=== PATIENT | female | born 1960 | race Two or more races ===

== ENCOUNTER 2024-07-02 10:50 | Inpatient (IN) | payer OTHER ==
[~2024-07-02] VITALS: Ht 152.4 cm; Wt 60.0 kg
--- NOTE | 2024-07-02 11:00 | ED.PDOC ---
HPI (NEURO) HPI Comments 63y F who presents to the ED for chief complaint of dizziness. - pt states she has been having dizziness with a specific headache for the past 2 days with noted headache to the front and back of her head - pt states she has history of vertigo and is otherwise complaint with her meclizine and states she took her medication earlier this AM prior to ED arrival - pt in the ED, otherwise is alert and oriented x 4 and able to answer all questions and no noted changes in vision, gait or speech are noted. - pt in the ED, denies nausea, vomiting, fever, cough,chills, dysuria, chest pain or shortness of breath - pt otherwise denies any other symptoms at this time Past medical history: DM, HTN, and CVA past surgical history: Medications: meclizine, metformin, Allergies: nkda Social history: denies ETOH, denies tobacco use, denies drug use Patrcik: GRAYSON: Lynette Historian. Patient states she had this many years ago and was seen by a specialist and was diagnosed with vertigo. She said her symptoms recurred again at least 2-3 weeks ago and she has been taking meclizine most recently at 9:00 a.m. prior to arrival. Rotation of the head in a rapid movement reproduces the symptoms of vertigo and dizziness. REVIEW OF SYSTEMS: CONSTITUTIONAL: Denies acute: fever, diaphoresis, chills, generalized weakness. HEAD: Denies acute: , photophobia Eyes: Denies acute: Double vision, vision loss, eye pain, eye discharge. EARS: Denies acute: tinnitus, hearing loss, ear discharge, ear pain, THROAT: Denies acute: sore throat, swelling, difficulty swallowing , pain with swa llowing, change in voice. NECK: Denies acute: neck pain, neck swelling, stiff neck. HEART: Denies acute : chest pain, palpitations, LUNGS: Denies acute: SOB, wheezing, cough, hemoptysis ABDOMEN: Denies acute: abdominal pain, Nausea, Vomiting, diarrhea, melena , hematemesis, hematochezia SKIN: Denies acute: rash, redness, lesions, itchiness. EXTREMITIES: Denies acute: calf pain, numbness, tingling, weakness, denies pain in extremity. Denies acute: Low back pain. Neuro: Denies acute: focal neurological deficit, motor or sensory focal neurological deficit, tremors, seizure like activity, confusion, , change in mental status, loss of bowel or bladder function, cauda equina like symptoms. : Denies acute: dysuria, hematuria, flank pain, increase in urinary frequency. PSYCH: Denies acute: hallucination, suicidal ideation, homicidal ideation. FEMALE: Denies acute: abnormal vaginal bleeding, foul odor, unusual discharge. PHYSICAL EXAM: General: ----mild----acute distress, awake and alert. Head: normocephalic, atraumatic. Neck: supple, trachea is midline, no swelling. Throat: Normal phonation. Eyes:, no erythema, no purulent discharge, no proptosis, no icterus. Heart: regular rate, regular rhythm, no significant murmur appreciated. Lungs: no apparent respiratory distress, Able to speak in full sentences. No wheezing, no rhonchi, no crackles. No stridors Clear to auscultation bilaterally. Abdomen: non tender to palpation, non distended, soft, no guarding, no rebound, + bowel sounds. Neuro: Awake, Alert, oriented to name, self, situation, follows commands GCS=15. Speech is normal. Skin: no petechia, no purpura, no cyanosis, non-pale, not jaundice. Lower extremities: --no - Pitting edema no deformity, no focal swelling, no calf TTP. Makes eye contact. moves all four extremities. Face: no apparent facial droop. Ambulating in the ED independently. PERRLA, EOM-I CN 2-12 are grossly intact, No nystagmus. No nuchal rigidity, Kernig's sign, Brudzinski's sign, no meningeal signs. ED COURSE: Chief Complaint: Dizziness Time Seen by MD: 11:07 Reviewed Notes: Nurses Notes, Medications, Allergies Information Source: Patient, Relative Mode of Arrival: Ambulatory Brought in by: family member Family History Family History: Reviewed,noncontributory to illness Social History Smoker: Non-Smoker Alcohol: Denies ETOH Use Drugs: Denies Drug Use Was a procedure done? Was a procedure done?: No Differential Diagnosis (SZ) Seizure: N/A General Weakness: Anemia, CVA, Dehydration, Dysrhythmia, Electrolyte imbalance, Encephalopathy, Guillain-Windthorst, Hypoglycemia, Hypotension, Hypovolemia, Labyrinthitis, Meniere's disease, Myasthenia gravis, Myocardial infarction, Pulmonary embolus, Repiratory failure, Vertigo: peripheral, Vestibular neuronitis X-Ray, Labs, Meds, VS Vital Signs Date Time Temp Pulse Resp B/P (MAP) Pulse Ox O2 Delivery O2 Flow Rate FiO2 07/02/24 13:07 79 64/38 07/02/24 13:04 71 96/59 07/02/24 13:00 98.2 71 13 96/59 (71) 97 98.2 07/02/24 11:45 206/103 07/02/24 11:25 79 14 98 Room Air* 0 21 07/02/24 11:25 98.0 79 14 206/103 (137) 98 98.0 07/02/24 11:01 74 07/02/24 10:53 98.2 80 16 182/98 (126) 99 98.2 Lab Test 07/02/24 13:05 07/02/24 11:40 07/02/24 11:11 Range/Units Troponin I High Sensitivity < 3 L < 3 L </=34 ng/L Thyroid Stimulating Hormone (TSH) Pending Urine Color Straw Yellow Urine Clarity Clear Clear Urine pH 7.0 5.0-9.0 Urine Specific [place] 1.006 1.001-1.035 Urine Protein Negative Negative Urine Ketones Negative Negative Urine Blood Negative Negative /uL Urine Nitrite Negative Negative Urine Bilirubin Negative Negative Urine Urobilinogen Normal Negative mg/dL Urine Leukocyte Esterase Negative Negative /uL Urine RBC <1 0 - 4 /hpf Urine Microscopic WBC 2 0-5 /HPF Urine Squamous Epithelial Cells None seen <5 /hpf Urine Bacteria None seen None Seen /hpf Urine Glucose Normal Normal mg/dL White Blood Count 5.7 4.4-10.8 10^3/uL Red Blood Count 4.58 4.0-5.20 10^6/uL Hemoglobin 14.0 12.2-16.2 g/dL Hematocrit 41.6 36.0-46.0 % Mean Corpuscular Volume 90.9 80.0-100.0 fL Mean Corpuscular Hemoglobin 30.6 28.0-32.0 pg Mean Corpuscular Hemoglobin Concent 33.6 32.0-36.0 g/dL Red Cell Distribution Width 12.5 11.8-14.3 % Platelet Count 204 140-450 10^3/uL Mean Platelet Volume 7.9 6.9-10.8 fL Neutrophils (%) (Auto) 43.5 37.0-80.0 % Lymphocytes (%) (Auto) 47.3 10.0-50.0 % Monocytes (%) (Auto) 6.7 0.0-12.0 % Eosinophils (%) (Auto) 1.5 0.0-7.0 % Basophils (%) (Auto) 1.0 0.0-2.0 % Neutrophils # (Auto) 2.5 1.6-8.6 10 ^3/uL Lymphocytes # (Auto) 2.7 0.4-5.4 10 ^3/uL Monocytes # (Auto) 0.4 0-1.3 10 ^3/uL Eosinophils # (Auto) 0.1 0-0.8 10 ^3/uL Basophils # (Auto) 0.1 0-0.2 10 ^3/uL Nucleated Red Blood Cells 0.1 % Sodium Level 139 136-145 mmol/L Potassium Level 3.9 3.5-5.1 mmol/L Chloride Level 105 98-107 mmol/L Carbon Dioxide Level 26 20-31 mmol/L Anion Gap 8 5-15 Blood Urea Nitrogen 8 L 9-23 mg/dL Creatinine 0.61 0.550-1.02 mg/dL Glomerular Filtration Rate Calc 101 >90 mL/min BUN/Creatinine Ratio 13.1 10.0-20.0 Serum Glucose 124 H 74-106 mg/dL Hemoglobin A1c Pending Lactic Acid Level 1.8 0.4-2.0 mmol/L Calcium Level 9.7 8.7-10.4 mg/dL Magnesium Level 2.1 1.6-2.6 mg/dL Total Bilirubin 0.6 0.2-1.0 mg/dL Aspartate Amino Transferase (AST) 27 13-40 U/L Alanine Aminotransferase (ALT) 38 7-40 U/L Alkaline Phosphatase 77 46-116 U/L Total Protein 7.6 5.7-8.2 g/dL Albumin 4.8 3.2-4.8 g/dL Triglycerides Level Pending Cholesterol Level Pending LDL Cholesterol Pending HDL Cholesterol Pending Current Medications Medications (Trade) Dose Ordered Sig/Angela Route Start Time Stop Time Status Last Admin Diazepam (Valium Tablet) 5 mg ONCE ONCE PO 07/02/24 11:00 07/02/24 11:01 DC 07/02/24 11:44 Hydralazine HCl (Apresoline Injection) 5 mg ONCE ONCE IV 07/02/24 11:45 07/02/24 11:46 DC 07/02/24 11:45 Sodium Chloride 1,000 ml @ 1,000 mls/hr Q1H ONCE IV 07/02/24 13:15 07/02/24 14:14 DC 07/02/24 13:08 [place] [id number] Ph: [phone] DIAGNOSTIC IMAGING Diagnostic Imaging Report : [id number] Signed PATIENT: DIA ORTIZCT: [id number] UNIT: [id number] : 1960 LOC: ER ROOM / BED: / AGE / SEX: 63 / F ADM STATUS: REG ER SERVICE 1058 ORDERING PHYSICIAN: GRACIE CLARK DO PROCEDURE(s): HWOCT - HEAD WITHOUT CONTRAST REASON: dizzy/park ORDER NUMBER(s): [id number], ACCESSION NUMBER(s): [id number] EXAM: CT HEAD WITHOUT CONTRAST INDICATION: dizzy/park TECHNIQUE: CT of the head without intravenous contrast. Radiation Dose : 1. Head: CT Dose: CTDI volume is 52 mGy. Dose-length product is 829 mGy*cm The dose indicators for CT are the volume Computed Tomography (CT) Dose Index (CTDIvol) and the Dose Length Product (DLP), and are measured in units of mGy and mGy-cm, respectively. These indicators are not patient dose, but values generated from the CT scanner acquisition factors. The report includes radiation exposure data for exposures received during this examination. COMPARISON: None FINDINGS: There is no evidence of acute intracranial hemorrhage, extra-axial collection, mass effect, midline shift, herniation or hydrocephalus. The ventricles, sulci and cisterns are age appropriate. The slaughter-white differentiation is intact. Patchy periventricular and subcortical white matter hypoattenuation is nonspecific but may be related to small vessel ischemic disease. The visualized paranasal sinuses and mastoid air cells are clear. The surrounding soft tissues and osseous structures are unremarkable. IMPRESSION: No acute intracranial abnormality. Radiation optimization: All CT scans at this facility use at least one of these dose optimization techniques: automated exposure control mA and/or kV adjustment per patient size (includes targeted exams where dose is matched to clinical indication) or iterative reconstruction. ATED BY: ABEBE ESTRADA MD DICTATED DATE/TIME: 07/02/241127 SIGNED BY: ABEBE ESTRADA MD SIGNED DATE/TIME: 07/02/241127 CC: Time of 1ST Reevaluation: 14:18 Reevaluation 1ST: Improved Patient Education/Counseling: Diagnosis, Treatment Family Education/Counseling: Other Comments Patient presented with the above HPI.--dizziness---workup was initiated. patient was found with the above mentioned diagnosis. the following medications were ordered: please refer to order lists of meds and tests obtained by myself Dr. Clark. Patient ED course and VS have been stabilized. Patient has been reassessed in the ED and remained in a stable condition. Pertinent incidental findings were discussed with the patient and/or family. Patient/family voices understanding and is agreeable with plan. Patient has been observed in the ED adequate length of time to insure improvement/stability. Escalation of care considered: Consideration of escalation to observation or admission Patient had multiple episodes of blood pressure fluctuation very hypertensive in the 200s systolic and then as low as 60 systolic. Patient was ADMITTED to the medicine team for further evaluation and treatment of their presentation. All the reports of any imaging studies that were ordered by myself were reviewed by myself. Departure 1 Departure Time of Disposition: 13:22 Impression: Primary Impression: Vertigo Additional Impressions: Hypertensive urgency Hypotensive episode Disposition: ADMITTED INPATIENT Admit to: Tele Condition: Guarded Discharged With: Self Critical Care Note Critical Care Time?: Yes (35 min-critical care time only) I personally scribed for GRACIE CLARK DO ([email or web address]) on 07/02/24 at 11:00. Electronically submitted by Maida Garcia ([facility]). I personally scribed for GRACIE CLARK DO ([email or web address]) on 07/02/24 at 11:08. Electronically submitted by Maida Garcia ([facility]). I personally scribed for GRACIE CLARK DO ([facility]) on 07/02/24 at 11:42. Electronically submitted by Maida Garcia ([facility]). GRACIE CLARK DO Jul 02, 2024 11:00
[2024-07-02 11:25] VITALS: PULSE 79; RESP 14; O2SAT 98
[2024-07-02 11:28] LABS: Basophils # (auto) 0.1 10 ^3/uL (0-0.2); Eosinophils # (auto) 0.1 10 ^3/uL (0-0.8); Eosinophils % (auto) 1.5 % (0.0-7.0); Hematocrit 41.6 % (36.0-46.0); Lymphocytes # (auto) 2.7 10 ^3/uL (0.4-5.4); Lymphocytes % (auto) 47.3 % (10.0-50.0); Mean Corpuscular Hemoglobin 30.6 pg (28.0-32.0); Mean Corpuscular Hgb Conc. 33.6 g/dL (32.0-36.0); Mean Corpuscular Volume 90.9 fL (80.0-100.0); Monocytes # (auto) 0.4 10 ^3/uL (0-1.3); Monocytes % (auto) 6.7 % (0.0-12.0); Neutrophils # (auto) 2.5 10 ^3/uL (1.6-8.6); Neutrophils % (auto) 43.5 % (37.0-80.0); Nucleated Red Blood Cells % 0.1 %; Platelet Count (auto) 204 10^3/uL (140-450); Red Blood Cells 4.58 10^6/uL (4.0-5.20); Red Cell Distribution Width 12.5 % (11.8-14.3); White Blood Cell 5.7 10^3/uL (4.4-10.8)
--- NOTE | 2024-07-02 11:30 | DVH ---
EXAM: CT HEAD WITHOUT CONTRAST INDICATION: dizzy/park TECHNIQUE: CT of the head without intravenous contrast. Radiation Dose : 1. Head: CT Dose: CTDI volume is 52 mGy. Dose-length product is 829 mGy*cm The dose indicators for CT are the volume Computed Tomography (CT) Dose Index (CTDIvol) and the Dose Length Product (DLP), and are measured in units of mGy and mGy-cm, respectively. These indicators are not patient dose, but values generated from the CT scanner acquisition factors. The report includes radiation exposure data for exposures received during this examination. COMPARISON: None FINDINGS: There is no evidence of acute intracranial hemorrhage, extra-axial collection, mass effect, midline s hift, herniation or hydrocephalus. The ventricles, sulci and cisterns are age appropriate. The slaughter-white differentiation is intact. Patchy periventricular and subcortical white matter hypoattenuation is nonspecific but may be related to small vessel ischemic disease. The visualized paranasal sinuses and mastoid air cells are clear. The surrounding soft tissues and osseous structures are unremarkable. IMPRESSION: No acute intracranial abnormality. Radiation optimization: All CT scans at this facility use at least one of these dose optimization suzanne hniques: automated exposure control mA and/or kV adjustment per patient size (includes targeted exam s where dose is matched to clinical indication) or iterative reconstruction.
[2024-07-02] MEDS: diazePAM 5 MG TAB PO ONE (11:44)
[2024-07-02] MEDS: hydrALAZINE HCL 20 MG/ML VL IV ONE (11:45)
[2024-07-02 11:54] LABS: Alanine Aminotransferase 38 U/L (7-40); Alkaline Phosphatase 77 U/L (46-116); Anion Gap 8 (5-15); Aspartate Aminotransferase 27 U/L (13-40); BUN/Creatinine Ratio 13.1 (10.0-20.0); Bilirubin, Total 0.6 mg/dL (0.2-1.0); Calcium 9.7 mg/dL (8.7-10.4); Carbon Dioxide 26 mmol/L (20-31); Chloride 105 mmol/L (98-107); Magnesium 2.1 mg/dL (1.6-2.6); Potassium 3.9 mmol/L (3.5-5.1); Sodium 139 mmol/L (136-145); Total Protein 7.6 g/dL (5.7-8.2)
[2024-07-02 11:56] LABS: Albumin 4.8 g/dL (3.2-4.8); Blood Urea Nitrogen 8 mg/dL (9-23); Glucose 124 mg/dL (74-106)
[2024-07-02] MEDS: SODIUM CHLORIDE 0.9% 1,000 ML IV ONE (13:08)
[2024-07-02 13:49] LABS: Urine Bacteria None Seen /hpf (None Seen)
[2024-07-02] MEDS ORDERED: HYDROcodone-ACET 5/325MG TAB PO PRN (14:15)
[2024-07-02] MEDS ORDERED: MORPHINE SULFATE INJ 2 MG/ml SYRG IV PRN (14:15)
[2024-07-02] MEDS ORDERED: ACETAMINOPHEN 325 MG TAB PO PRN (14:15)
[2024-07-02] MEDS ORDERED: ONDANSETRON HCL 4 MG/2 ML VIAL IV PRN (14:15)
[2024-07-02 14:24] LABS: Urine Blood Negative /uL (Negative); Urine Clarity Clear (Clear); Urine Protein, UAD Negative (Negative); Urine Specific Gravity 1.006 (1.001-1.035); Urine Squamous Epithelial Cell None Seen /hpf (<5); Urine Urobilinogen Normal (Negative); Urine WBC 2 /HPF (0-5)
[2024-07-02 14:27] LABS: Urine Color Straw (Yellow)
[2024-07-02] MEDS ORDERED: DEXTROSE (50%) 50ML SYRG IV PRN (14:30)
--- NOTE | 2024-07-02 14:50 | DVHHP2 ---
History of Present Illness Reason for Visit: Dizziness and headache History of Present Illness Lauren Hedrick is a 63-year-old female with past medical history of hypertension, diabetes type 2, CVA with left-sided deficits, vertigo, and C- section who presents to the ED with dizziness and headache x2 weeks. Per patient she had gone to over to see a doctor and was diagnosed with an ear infection in the right and was given amoxicillin along with ibuprofen. She is currently reporting ear pain in the right and itchiness in the left. Patient also states that 1 month ago she had the flu. She denies any recent sick contacts, recent trauma or injury, recent ingestion of spoiled food, recent travels, fever, chills, lightheadedness, weakness, chest pain, shortness of breath, abdominal pain, nausea, vomiting, or diarrhea. Patient reported that she had a stroke in February of 2023 and had physical therapy for about 5 months. Cardiovascular: HTN GLASS CARRIER: Other (CVA with left-sided weakness and vertigo) Endocrine: Diabetes Past Surgical History: Family History: DM, Other (Mom with diabetes and heart disease and father with CABG) Smoke: No ALCOHOL: none Drugs: None Lives: with Family Domestic Violence: Neg Review of Systems Constitutional: Yes: Other (Headache and dizziness) ENT: Ear pain, Other (Left ear itchiness and right ear pain) Allergies: Coded Allergies: NO KNOWN ALLERGIES (Unverified , 07/02/24) Exam Vital Signs Vital Signs Date Time Temp Pulse Resp B/P (MAP) Pulse Ox O2 Delivery O2 Flow Rate FiO2 07/02/24 13:07 79 64/38 07/02/24 11:25 14 98 Room Air* 0 21 07/02/24 11:25 98.0 98.0 General Appearance: Alert, Oriented X3, Cooperative, No acute distress HEENT: Atraumatic, PERRLA, EOMI, Mucous membr. moist/pink Respiratory: Normal air movement Cardiovascular: Normal S1, Normal S2, No murmurs Abdominal: Soft Extremities: No cyanosis, No edema, Normal pulses Skin: No significant lesion Neuro: Normal speech, Normal tone, Sensation intact Psych/Mental Status: Mental status NL, Mood NL Labs/Xrays Labs Test 07/02/24 13:05 07/02/24 11:40 07/02/24 11:11 Range/Units Troponin I High Sensitivity < 3 L </=34 ng/L Urine Color Straw Yellow Urine Clarity Clear Clear Urine pH 7.0 5.0-9.0 Urine Specific [place] 1.006 1.001-1.035 Urine Protein Negative Negative Urine Ketones Negative Negative Urine Blood Negative Negative /uL Urine Nitrite Negative Negative Urine Bilirubin Negative Negative Urine Urobilinogen Normal Negative mg/dL Urine Leukocyte Esterase Negative Negative /uL Urine RBC <1 0 - 4 /hpf Urine Microscopic WBC 2 0-5 /HPF Urine Squamous Epithelial Cells None seen <5 /hpf Urine Bacteria None seen None Seen /hpf Urine Glucose Normal Normal mg/dL White Blood Count 5.7 4.4-10.8 10^3/uL Red Blood Count 4.58 4.0-5.20 10^6/uL Hemoglobin 14.0 12.2-16.2 g/dL Hematocrit 41.6 36.0-46.0 % Mean Corpuscular Volume 90.9 80.0-100.0 fL Mean Corpuscular Hemoglobin 30.6 28.0-32.0 pg Mean Corpuscular Hemoglobin Concent 33.6 32.0-36.0 g/dL Red Cell Distribution Width 12.5 11.8-14.3 % Platelet Count 204 140-450 10^3/uL Mean Platelet Volume 7.9 6.9-10.8 fL Neutrophils (%) (Auto) 43.5 37.0-80.0 % Lymphocytes (%) (Auto) 47.3 10.0-50.0 % Monocytes (%) (Auto) 6.7 0.0-12.0 % Eosinophils (%) (Auto) 1.5 0.0-7.0 % Basophils (%) (Auto) 1.0 0.0-2.0 % Neutrophils # (Auto) 2.5 1.6-8.6 10 ^3/uL Lymphocytes # (Auto) 2.7 0.4-5.4 10 ^3/uL Monocytes # (Auto) 0.4 0-1.3 10 ^3/uL Eosinophils # (Auto) 0.1 0-0.8 10 ^3/uL Basophils # (Auto) 0.1 0-0.2 10 ^3/uL Nucleated Red Blood Cells 0.1 % Sodium Level 139 136-145 mmol/L Potassium Level 3.9 3.5-5.1 mmol/L Chloride Level 105 98-107 mmol/L Carbon Dioxide Level 26 20-31 mmol/L Anion Gap 8 5-15 Blood Urea Nitrogen 8 L 9-23 mg/dL Creatinine 0.61 0.550-1.02 mg/dL Glomerular Filtration Rate Calc 101 >90 mL/min BUN/Creatinine Ratio 13.1 10.0-20.0 Serum Glucose 124 H 74-106 mg/dL Lactic Acid Level 1.8 0.4-2.0 mmol/L Calcium Level 9.7 8.7-10.4 mg/dL Magnesium Level 2.1 1.6-2.6 mg/dL Total Bilirubin 0.6 0.2-1.0 mg/dL Aspartate Amino Transferase (AST) 27 13-40 U/L Alanine Aminotransferase (ALT) 38 7-40 U/L Alkaline Phosphatase 77 46-116 U/L Total Protein 7.6 5.7-8.2 g/dL Albumin 4.8 3.2-4.8 g/dL EXAM: CT HEAD WITHOUT CONTRAST INDICATION: dizzy/park TECHNIQUE: CT of the head without intravenous contrast. Radiation Dose : 1. Head: CT Dose: CTDI volume is 52 mGy. Dose-length product is 829 mGy*cm The dose indicators for CT are the volume Computed Tomography (CT) Dose Index (CTDIvol) and the Dose Length Product (DLP), and are measured in units of mGy and mGy-cm, respectively. These indicators are not patient dose, but values generated from the CT scanner acquisition factors. The report includes radiation exposure data for exposures received during this examination. COMPARISON: None FINDINGS: There is no evidence of acute intracranial hemorrhage, extra-axial collection, mass effect, midline shift, herniation or hydrocephalus. The ventricles, sulci and cisterns are age appropriate. The slaughter-white differentiation is intact. Patchy periventricular and subcortical white matter hypoattenuation is nonspecific but may be related to small vessel ischemic disease. The visualized paranasal sinuses and mastoid air cells are clear. The surrounding soft tissues and osseous structures are unremarkable. IMPRESSION: No acute intracranial abnormality. Assessment/Plan Assessment/Plan Assessment Hypertensive urgency Vertigo Intractable headache History of hypertension History of diabetes type 2 History of CVA with left-sided hemiparesis History of Plan Admit to [facility] IV fluids given ED Antihypertensives given ED Troponin negative x2 CT head noted EKG UA Mag level Lactic Orthostatics Flu test COVID test IV antibiotics-azithromycin TSH Hemoglobin A1c ISS and Accu-Cheks acth cortisol Aldosterone level Patient reports that she does not take any home medications DVT prophylaxis-Lovenox PUD prophylaxis-not indicated no history of GERD or GI bleed Discussed plan of care with patient and nurse Plan discussed with: Patient Date of Service: Jul 02, 2024 Billing Provider: ELSI NUNEZ Common Visit Codes: [id number] INP/OBS CARE (HIGH) ELSI NUNEZ Jul 02, 2024 14:50
[2024-07-02] MEDS: AZITHROMYCIN 500MG/ 250ML 250 ML IV SCH (15:23)
[2024-07-02 15:25] LABS: HDL Cholesterol 51 mg/dL (40-59)
[2024-07-02 15:31] LABS: Cholesterol 278 mg/dL (< 200); LDL Cholesterol 181 mg/dL (< 100); Triglycerides 354 mg/dL (< 150)
[2024-07-02 15:50] LABS: COVID19 ANTIGEN SOFIA FIA NEGATIVE (NEGATIVE); Rapid Influenza A Negative (Negative); Rapid Influenza B Negative (Negative)
[2024-07-02] MEDS: InsuLIN REG 1unit/0.01ml Soln (100units/ml) SC SCH (17:00)
[2024-07-02] MEDS: ACCU-CHEK COMFORT CURVE STRIP VI SCH (17:00)
[2024-07-02 19:20] VITALS: PULSE 88; RESP 14; O2SAT 96
[2024-07-02 20:32] VITALS: BP 129/84; PULSE 96; RESP 20; TEMP 98; O2SAT 98
[2024-07-02 21:35] VITALS: BP 117/67; PULSE 99; TEMP 98.4; O2SAT 99
[2024-07-03] VITALS (8 sets, daily range): BP systolic 111–140; BP diastolic 55–92; PULSE 75–106; RESP 15–18; TEMP 98–98.7; O2SAT 96–98
[2024-07-03 06:14] LABS: Basophils # (auto) 0.1 10 ^3/uL (0-0.2); Basophils % (auto) 0.7 % (0.0-2.0); Eosinophils # (auto) 0.1 10 ^3/uL (0-0.8); Eosinophils % (auto) 1.4 % (0.0-7.0); Hematocrit 38.9 % (36.0-46.0); Hemoglobin 13.3 g/dL (12.2-16.2); Lymphocytes # (auto) 3.7 10 ^3/uL (0.4-5.4); Lymphocytes % (auto) 51.9 % (10.0-50.0); Mean Corpuscular Hemoglobin 30.6 pg (28.0-32.0); Mean Corpuscular Hgb Conc. 34.2 g/dL (32.0-36.0); Mean Corpuscular Volume 89.7 fL (80.0-100.0); Monocytes # (auto) 0.5 10 ^3/uL (0-1.3); Monocytes % (auto) 6.9 % (0.0-12.0); Neutrophils # (auto) 2.8 10 ^3/uL (1.6-8.6); Neutrophils % (auto) 39.1 % (37.0-80.0); Nucleated Red Blood Cells % 0.1 %; Platelet Count (auto) 202 10^3/uL (140-450); Red Blood Cells 4.33 10^6/uL (4.0-5.20); Red Cell Distribution Width 12.5 % (11.8-14.3); White Blood Cell 7.2 10^3/uL (4.4-10.8)
--- NOTE | 2024-07-03 06:15 | ECG ---
[facility] Test Date: 2024-07-02 Test Time: 11:01:33 Pat Name: WILFRED ORTIZ Department: ER Room: 0245 B Gender: F Manager Actuarial: KOFI : 1960 Requested By: GRACIE CLARK Order Number: [id number] Reading MD: James Peguero Measurements Intervals Robinson Rate: 74 P: 33 OK: 140 QRS: 24 QRSD: 70 T: 28 QT: 409 QTc: 454 Interpretive Statements Sinus rhythm Electronically Signed On 07-03-2024 15:11:25 PDT by James Peguero Please click the below link to view image of tracing.
[2024-07-03 06:31] LABS: Alanine Aminotransferase 34 U/L (7-40); Albumin 4.4 g/dL (3.2-4.8); Alkaline Phosphatase 62 U/L (46-116); Anion Gap 10 (5-15); Aspartate Aminotransferase 24 U/L (13-40); BUN/Creatinine Ratio 17.2 (10.0-20.0); Blood Urea Nitrogen 10 mg/dL (9-23); Calcium 9.6 mg/dL (8.7-10.4); Carbon Dioxide 25 mmol/L (20-31); Chloride 107 mmol/L (98-107); Glucose 101 mg/dL (74-106); Potassium 3.9 mmol/L (3.5-5.1); Sodium 142 mmol/L (136-145)
[2024-07-03 06:32] LABS: Bilirubin, Total 0.6 mg/dL (0.2-1.0)
[2024-07-03] MEDS: ENOXAPARIN SOD 40 MG/0.4 ML SYRINGE SC SCH (10:19)
--- NOTE | 2024-07-03 11:56 | DVHDS2 ---
Discharge Summary Date of Admission Jul 02, 2024 at 14:12 Date of Discharge: Jul 03, 2024 Admitting Diagnosis Hypertensive crisis Labs/Diagnostic Data: Laboratory Results Test 07/03/24 07:34 07/03/24 05:46 07/03/24 05:35 07/02/24 16:08 POC Glucose 111 mg/dl (70-106) White Blood Count 7.2 10^3/uL (4.4-10.8) Red Blood Count 4.33 10^6/uL (4.0-5.20) Hemoglobin 13.3 g/dL (12.2-16.2) Hematocrit 38.9 % (36.0-46.0) Mean Corpuscular Volume 89.7 fL (80.0-100.0) Mean Corpuscular Hemoglobin 30.6 pg (28.0-32.0) Mean Corpuscular Hemoglobin Concent 34.2 g/dL (32.0-36.0) Red Cell Distribution Width 12.5 % (11.8-14.3) Platelet Count 202 10^3/uL (140-450) Mean Platelet Volume 8.0 fL (6.9-10.8) Neutrophils (%) (Auto) 39.1 % (37.0-80.0) Lymphocytes (%) (Auto) 51.9 % (10.0-50.0) Monocytes (%) (Auto) 6.9 % (0.0-12.0) Eosinophils (%) (Auto) 1.4 % (0.0-7.0) Basophils (%) (Auto) 0.7 % (0.0-2.0) Neutrophils # (Auto) 2.8 10 ^3/uL (1.6-8.6) Lymphocytes # (Auto) 3.7 10 ^3/uL (0.4-5.4) Monocytes # (Auto) 0.5 10 ^3/uL (0-1.3) Eosinophils # (Auto) 0.1 10 ^3/uL (0-0.8) Basophils # (Auto) 0.1 10 ^3/uL (0-0.2) Nucleated Red Blood Cells 0.1 % Sodium Level 142 mmol/L (136-145) Potassium Level 3.9 mmol/L (3.5-5.1) Chloride Level 107 mmol/L (98-107) Carbon Dioxide Level 25 mmol/L (20-31) Anion Gap 10 (5-15) Blood Urea Nitrogen 10 mg/dL (9-23) Creatinine 0.58 mg/dL (0.550-1.02) Glomerular Filtration Rate Calc 102 mL/min (>90) BUN/Creatinine Ratio 17.2 (10.0-20.0) Serum Glucose 101 mg/dL (74-106) Calcium Level 9.6 mg/dL (8.7-10.4) Total Bilirubin 0.6 mg/dL (0.2-1.0) Aspartate Amino Transferase (AST) 24 U/L (13-40) Alanine Aminotransferase (ALT) 34 U/L (7-40) Alkaline Phosphatase 62 U/L (46-116) Total Protein 7.0 g/dL (5.7-8.2) Albumin 4.4 g/dL (3.2-4.8) Test 07/02/24 15:03 07/02/24 14:48 07/02/24 13:05 07/02/24 11:40 Troponin I High Sensitivity < 3 ng/L (</=34) Influenza Type A Antigen Negative (Negative) Influenza Type B Antigen Negative (Negative) SARS-CoV-2 Antigen (Rapid) Negative (NEGATIVE) Thyroid Stimulating Hormone (TSH) 1.48 uIU/mL (0.55-4.78) Urine Color Straw (Yellow) Urine Clarity Clear (Clear) Urine pH 7.0 (5.0-9.0) Urine Specific [place] 1.006 (1.001-1.035) Urine Protein Negative (Negative) Urine Ketones Negative (Negative) Urine Blood Negative /uL (Negative) Urine Nitrite Negative (Negative) Urine Bilirubin Negative (Negative) Urine Urobilinogen Normal mg/dL (Negative) Urine Leukocyte Esterase Negative /uL (Negative) Urine RBC <1 /hpf (0 - 4) Urine Microscopic WBC 2 /HPF (0-5) Urine Squamous Epithelial Cells None seen /hpf (<5) Urine Bacteria None seen /hpf (None Seen) Urine Glucose Normal mg/dL (Normal) Test 07/02/24 11:11 Hemoglobin A1c 5.9 % A1C (<5.7) Lactic Acid Level 1.8 mmol/L (0.4-2.0) Magnesium Level 2.1 mg/dL (1.6-2.6) Triglycerides Level 354 mg/dL (< 150) Cholesterol Level 278 mg/dL (< 200) LDL Cholesterol 181 mg/dL (< 100) HDL Cholesterol 51 mg/dL (40-59) Other Laboratory Tests 07/03/24 05:35 Brief Hx & Hospital Course: History of Present Illness Lauren Hedrick is a 63-year-old female with past medical history of hypertension, diabetes type 2, CVA with left-sided deficits, vertigo, and C- section who presents to the ED with dizziness and headache x2 weeks. Per patient she had gone to over to see a doctor and was diagnosed with an ear infection in the right and was given amoxicillin along with ibuprofen. She is currently reporting ear pain in the right and itchiness in the left. Patient also states that 1 month ago she had the flu. She denies any recent sick contacts, recent trauma or injury, recent ingestion of spoiled food, recent travels, fever, chills, lightheadedness, weakness, chest pain, shortness of breath, abdominal pain, nausea, vomiting, or diarrhea. Patient reported that she had a stroke in February of 2023 and had physical therapy for about 5 months. Course of hospitalization: Patient was symptoms have resolved. Patient was now normotensive. Patient was requesting to be discharged home. She was instructed to continue her oral antibiotic therapy for her ear infection. Patient also reports having a prescription for lisinopril is instructed to continue to use. All diagnostic tests discussed with the patient was a family. All questions answered. Physical examination General: Alert and Oriented x3. No acute distress. Well-nourished. Eyes: EOMI. Anicteric. HENT: Moist mucous membranes. Lungs: Clear to auscultation bilaterally. No accessory muscle use. Cardiovascular: Regular rate and rhythm. No murmur. No JVD. Abdomen: Soft, non-tender and non-distended. No palpable masses. Extremities: No edema. Non-tender. Skin: No rashes or lesions. Warm. Neurologic: No focal neurological deficits. CN II-XII grossly intact, but not individually tested. Psychiatric: Cooperative. Appropriate mood and affect. Total time spent with patient discussing and formulating plan of care: 35 minutes. This medical document was created using an electronic medical record system with [employer] dictation system. Although this document has been carefully reviewed, there may still be some phonetic and typographical errors. These areas are purely typographical due to imperfections of the software programs, and do not reflect any compromise in the patient's medical care. Condition at Discharge: Good Final Diagnosis/Problems List Accelerated HTN Secondary diagnosis: Vertigo Intractable headache History of hypertension History of diabetes type 2 History of CVA with left-sided hemiparesis History of Discharge Disposition: Home Discharge Instruct/Medications Diet: Regular Activity: No Restrictions, As Tolerated Follow Up/Referral: PCP in 1-2 weeks Medications: Continue all home medication 36 Discharge Statement: "Patient was advised to return to the ER or call 911 if any headaches, dizziness, shortness of breath, chest pain, abdominal pain, bleeding, fevers, or worsening of medical condition. Patient was counseled about treatment plan, medications, possible side effects, patientverbalized understanding. All questions were answered to the best of my ability. This discharge took greater then 30 minutes in planning, reviewing documentation, counseling the patient, and discussing with other team members." ASSESSMENT ASSESSMENT Assessment Accelerated HTN Date of Service: Jul 03, 2024 Billing Provider: LAUREL WETZEL NP Common Visit Codes: 36094-ONB/OBS DISCH DAY >30min LAUREL WETZEL NP Jul 03, 2024 11:56
[2024-07-04 10:46] LABS: Free T4 (Free Thyroxine) 1.1 ng/dL (0.89-1.76)
[2024-07-06 12:07] LABS: Adrenocorticotropic Hormone 16.4 pg/mL (7.2-63.3)
== END 2024-07-03 12:20 | disposition home or self-care (01) | DRG 111 ==
LOC: ER 10:50 → OVERFLOW 14:12 → EAST 21:27
DX: H81.11 Benign paroxysmal vertigo, right ear (principal); I69.354 Hemiplegia and hemiparesis following cerebral infarction affecting left non-dominant side; I16.0 Hypertensive urgency; H66.91 Otitis media, unspecified, right ear; Z20.822 Contact with and (suspected) exposure to COVID-19; I10 Essential (primary) hypertension; E11.9 Type 2 diabetes mellitus without complications; Z83.3 Family history of diabetes mellitus; Z98.891 History of uterine scar from previous surgery; Z95.1 Presence of aortocoronary bypass graft
CPT/HCPCS: 36415; 70450; 80053; 80061; 81001; 82024; 82088; 82533; 82962; 83036; 83605; 83735; 84439; 84443; 84484; 85025; 87426; 87804; 93005; 96361; 96374; 99291; G0378; J1815